=== PATIENT | male | born 1945 | race Hispanic/Latino ===

== ENCOUNTER 2019-12-10 09:03 | Outpatient (CLI) | payer MEDICARE, MEDICAID, SELFPAY ==
--- NOTE | ~2019-12-10 | US_ITS ---
EXAMINATION: US right upper quadrant DATE: 12/10/2019 09:41 INDICATION: Abnormal liver function tests. TECHNIQUE: Multiple grayscale and Doppler ultrasound images of the abdomen were obtained. COMPARISON: CT abdomen and pelvis 05/14/2019, 04/01/2016 FINDINGS: The pancreas is obscured by bowel gas. There is a 4.6 cm mass of ill-defined mild hyperecho genicity in right hepatic lobe, likely focal steatosis. There is normal flow in main portal vein. The gallbladder is normal in size. No gallstones or gallbladder wall thickening. There was no sonographi c Quinn sign. The common duct is normal and measures 4 mm. IMPRESSION: 1. Ill-defined liver mass, new from 05/14/2019, most likely focal steatosis. Consider abdomen MRI wit hout and with contrast. Reviewed, dictated and finalized at location A. IMPRESSION: 1. Ill-defined liver mass, new from 05/14/2019, most likely focal steatosis. Co nsider abdomen MRI without and with contrast.
== END 2019-12-10 09:04 | disposition home or self-care (01) ==
PROVIDERS: PCP Family Medicine; Visit Provider Family Medicine
DX: R94.5 Abnormal results of liver function studies (principal)
CPT/HCPCS: 76705

== ENCOUNTER 2019-12-20 10:48 | Outpatient (CLI) | payer MEDICARE, MEDICAID, SELFPAY ==
--- NOTE | ~2019-12-20 | MR_ITS ---
EXAMINATION: MR abdomen wo/w con DATE: 12/20/2019 12:14 INDICATION: Liver mass. TECHNIQUE: Magnetic resonance imaging (MRI) of the abdomen was performed without and with 15 mL Multi Randy intravenous contrast. Sequences included coronal T2-weighted FS FSE, coronal and axial FS FIEST A, axial T2-weighted FSE, coronal LAVA-flex, axial STIR FSE, axial DWI, axial dual-echo T1-weighted F SPGR, and axial LAVA. Postcontrast sequences included coronal LAVA-flex and a time course of axial LA VA. COMPARISON: Abdomen ultrasound 12/10/2019, CT abdomen and pelvis 05/14/2019 FINDINGS: There are cysts in the liver measuring up to 14 mm. The gallbladder, spleen, pancreas, and adrenal gl ands are normal. There are cysts in the kidneys measuring up to 2.0 cm on the right. There are no dil ated loops of bowel. There are no pathologically enlarged lymph nodes. There is no free intraperitone al fluid. IMPRESSION: 1. Benign cysts in the liver. Reviewed, dictated and finalized at location A.
[2019-12-20 11:36] LABS: Estimated Glomerular Filt Rate > 60
== END 2019-12-20 10:49 | disposition home or self-care (01) ==
PROVIDERS: PCP Family Medicine; Visit Provider Family Medicine
DX: R16.0 Hepatomegaly, not elsewhere classified (principal); K76.89 Other specified diseases of liver
CPT/HCPCS: 36415; 74183; A9577

== ENCOUNTER 2023-03-28 02:03 | Day surgery (SDC) | payer OTHER, SELFPAY ==
[2023-03-26 09:10] VITALS: BP 133/82; PULSE 68; RESP 16; TEMP 36.9; O2SAT 96
[2023-03-26 09:12] VITALS: BMI 28.5
--- NOTE | 2023-03-26 09:12 | PC.NURSE ---
Report to the Outpatient Waiting Room, entrance under the green pavilion located off [facility], at time _0600_ on date _[id number]_. Planned Procedure Time: _0730_. Time changes happen often and if your time is changed the preop area will call you the afternoon before. - You and your visitor will be asked to self-screen and do not enter if you have any COVID symptoms. - A mask is optional within the hospital at this time. Patients may have clear liquids (water, carbonated beverages, clear teas, apple juice) until 3 hours prior to surgery with a maximum of 20 ounces. - No food from midnight until time of surgery Take the following medications with a SIP of water the morning of surgery: ____None DO NOT STOP ANY OF YOUR OTHER PRESCRIPTION MEDICATIONS PRIOR TO SURGERY ?EXCEPT THE FOLLOWING Medications to discontinue per physician None Date to take last dose Please no make-up, nail mexican, hairspray, perfume, deodorant, or body powder the day of surgery. No jewelry (including any body piercings) or valuables the day of surgery, leave them at home. Please take a shower or bath the night before, or the morning of, surgery with an antibacterial soap. Wear comfortable, loose fitting clothing. - Jewelry must be removed prior to entering the operating room. Rings and piercings that are not removed may be cut off. - The hospital will not accept responsibility for valuables. - Please leave all valuables, including medications, at home the day of surgery. If you are going home after surgery, a licensed commercial trailer truck driver must drive you home. - NO public transportation without another adult if you receive anesthesia. - We recommend that an adult stay with you for 24 hours following discharge. - We also recommend that you do not drive, make important decision, drink alcoholic beverages, or take any drugs that were not prescribed by your health care provider for at least 24 hours after your discharge time. Follow any additional instructions given to you from your surgeon. If you or anyone in your household have experienced Covid symptoms in the past week, please notify your surgeon or the nurse liaison at the phone number below for possible testing. Telephone instructions given to _Linnette and Gary__and asked if any additional questions and then verbalized understanding. Patient advised to call surgeon office or pre surgery nurse liaison [phone] if any additional questions.
--- NOTE | 2023-03-26 15:25 | PM.IMHP ---
H&P: HPI History of Present Illness Date/Time: 03/26/23 15:25 Chief Complaint: Patient presents a chief complaint of stiffness right knee status post knee replacement surgery. His motion is from about 3 to 95? or so. He had the knee done 6 weeks ago by me and initially had done well those these becoming a little bit stiffer with time. He has pain when he walks on it. Review of Systems Review of Systems: All systems reviewed & are unremarkable except as noted in HPI and below Musculoskeletal: Musculoskeletal: Reports arthralgias and Reports joint swelling FOR[facility]LY [facility] Surgical History Surgical History (Updated 03/24/23 @ 11:04 by Bryan Castelan MD) History of right knee joint replacement 02/05/23- Dr Castelan Social History Social History (Updated 03/24/23 @ 10:37 by Yudi Walker [facility]) Years smoked: 50 Smoking status: Former smoker Smoking end date: 01/24/23 Alcohol intake: never Substance use type: does not use Lack of Transportation: No Lack of Food: Never True Current Housing: I Have Housing Concerned About Future Housing: No Difficulty Paying Gas/Electric Bills: No Difficulty Paying for Meds: No Currently Unemployed: No Education: Grade School Difficulty w/ Childcare or Family Care: No Living arrangements: with family Occupation/Education: retired Spiritual care concerns: No Meds Home Medications and Allergies Home Medications Medication Instructions Recorded Confirmed Type No Home Medications 03/24/23 03/26/23 History Allergies Allergy/AdvReac Type Severity Reaction Status Date / Time No Known Allergies Allergy Unknown Verified 03/26/23 09:04 Vital Signs Vital Signs - 24 hr 03/26/23 09:10 Temperature 98.4 F Pulse Rate 68 Respiratory Rate 16 Blood Pressure 133/82 Pulse Oximetry 96 Oxygen Delivery Room Air Exam Narrative: Examination of his knee demonstrates motion from about 3 to 95? he has a painful beyond that the knee is stiff. Neurologically appears to be intact incision is clean he has mild swelling about the knee. The knee is stable to stress and side to side as well as front to back. Const: General: uncomfortable HENMT: Ears: TM's normal bilaterally Eyes: General: appearance normal, both eyes and all related structures Neck: Neck: supple Resp: Effort & Inspection: normal respiratory effort Cardio: Rate: regular rate GI: GI Palp: Yes Soft to palpation Skin: Wounds: wounds noted ( Surgical wound is healing well.) Neuro: Motor exam (neuro): 5/5 motor strength present throughout and Normal motor muscle tone present throughout Assessment and Plan Assessment and plan (1) History of right knee joint replacement: Code(s): Z96.651 - Presence of right artificial knee joint Status: Acute Assessment and Plan: Patient is status post total knee arthroplasty right. He has some postoperative stiffness and he is not progressing. I think it best to try and see if we can get him a little more motion. His motion at this time is about 3 to 95?. The knee is stable in fact a bit too stable his incision is clean he does have mild pain and swelling. I have discussed treatment options with him risks benefits limitations and alternatives in detail. Will proceed with manipulation right knee. I did discuss the possibility of fracture although I think it terribly unlikely. (2) Postoperative stiffness of total knee replacement: Code(s): T84.89XA - Other specified complication of internal orthopedic prosthetic devices, implants and grafts, initial encounter; M25.669 - Stiffness of unspecified knee, not elsewhere classified; Z96.659 - Presence of unspecified artificial knee joint Status: Acute
--- NOTE | 2023-03-27 15:26 | WPDANESEPPF ---
Anes - Initial Pre Proc Eval Procedure: Operation Date: 03/28/23 07:30 Proposed Procedures p Manipulation Right Knee - Bryan Castelan MD Date/Time: 03/27/23 15:26 Surgeon: Bryan Castelan MD Pre Op Diagnosis: Right Knee Pain Patient Data Age: 78 Gender: M Height: 1.7 m Weight: 82.6 kg Last Vital Signs Temp 36.9 C 03/26/23 09:10 Pulse 68 03/26/23 09:10 Resp 16 03/26/23 09:10 BP 133/82 03/26/23 09:10 Pulse Ox 96 03/26/23 09:10 O2 Del Method Room Air 03/26/23 09:10 Allergies Allergy/AdvReac Type Severity Reaction Status Date / Time No Known Allergies Allergy Unknown Verified 03/28/23 06:22 Home Medications Medication Instructions Recorded Confirmed Type hydrocodone 7.5 mg-acetaminophen 1 tablet PO Q4H PRN pain #40 tabs 03/28/23 Rx 325 mg tablet Patient hx anesthesia problems: none Family hx anesthesia problems: none Results Review: All pre-operative results and documents have been reviewed as part of the pre-operative evaluation. [facility]LY [facility] Surgical History Surgical History (Updated 03/24/23 @ 11:04 by Bryan Castelan MD) History of right knee joint replacement 02/05/23- Dr Castelan Social History Social History (Updated 03/24/23 @ 10:37 by Yudi Walker [facility]) Years smoked: 50 Smoking status: Former smoker Smoking end date: 01/24/23 Alcohol intake: never Substance use type: does not use Lack of Transportation: No Lack of Food: Never True Current Housing: I Have Housing Concerned About Future Housing: No Difficulty Paying Gas/Electric Bills: No Difficulty Paying for Meds: No Currently Unemployed: No Education: Grade School Difficulty w/ Childcare or Family Care: No Living arrangements: with family Occupation/Education: retired Spiritual care concerns: No Anes - Eval Final PreProcedure Day of Procedure 03/27/23 15:26 Patient weight: overweight Heart: regular rate and rhythm Lungs: clear to auscultation Airway: Mallampati scale class II Neurological: alert and oriented Last oral intake: >/= 8 hours ASA classification: II Emergent: no Anesthetic plan: proceed Anesthesia type and monitoring: general GIVS and standard monitoring Results Review: All pre-operative results and documents have been reviewed as part of the pre-operative evaluation. Informed Consent: The patient's anesthetic plan and its attendant risks and benefits were discussed with the patient/family/POA. Questions were solicited and answers provided to the satisfaction of the patient/family/POA.
--- NOTE | 2023-03-28 06:39 | WPDHPUPDATE1 ---
History and Physical Update Update Date/Time: 03/28/23 06:39 History and Physical has been reviewed, including an updated exam of the patient. There are NO changes in the patient's condition. Risks, benefits, and alternatives have been discussed and questions answered. Patient agrees to proceed with procedure.
[2023-03-28] MEDS: ACETAMINOPHEN 500 MG TABLET 1000 MG PO (06:52)
[2023-03-28] MEDS: LACTATED RINGERS 1,000 ML 30 ML IV CONT (06:57)
[2023-03-28] MEDS: KETOROLAC 15 MG/ML VIAL (*BKC) IV PUSH (06:58)
[2023-03-28 07:01] VITALS: BP 124/69; PULSE 66; RESP 16; TEMP 36.8; O2SAT 96
--- NOTE | 2023-03-28 07:38 | W.PM.PROC2 ---
Procedure Note - Detailed Date of Procedure 03/28/23 Pre-op Diagnosis Right Knee Pain and Stiffness Post-op Diagnosis Same Procedure Performed Manipulation Surgeon Bryan Castelan MD Anesthesia General Indications Adhesions Description of Procedure Patient brought to operating room 5. A general anesthetic was administered. The knee was then gently manipulated into full extension and flexion beyond 120?. The bands were felt tear. I did not appreciate a fracture at that time. The patient left the operating room in satisfactory condition. Estimated Blood Loss 0 Disposition PACU
--- NOTE | 2023-03-28 07:43 | SUR.OPER ---
NO POST OP XRAY VERIFIED POST MANIPULATION WITH SURGEON.
[2023-03-28 07:46] VITALS: BP 114/66; PULSE 61; RESP 14; O2SAT 99
[2023-03-28 08:15] VITALS: BP 121/73; PULSE 65; O2SAT 95
--- NOTE | 2023-03-28 08:18 | WPDANESPNB ---
Anes - Peripheral Nerve Block Date/Time: 03/28/23 08:18 I have discussed with the patient/family/POA the placement of a peripheral nerve block for post-operative pain management, including associated risks, benefits, complications, and side effects. Alternative methods of post-operative analgesia were detailed. Questions were solicited and answers provided to the satisfaction of the patient/family/POA. Time-Out: A pre-procedural Time-Out was completed immediately before starting the procedure and confirmed: Patient Identification, Site, Procedure, Patient Position and the Availability of Requisite Equipment. Clinical Indications: Acute post-operative pain management requested by the operative surgeon. Nerve Block Insertion Note Anes-nerve block: adductor canal right Patient position: supine Skin prep: chlorhexidine Needle: 22 gauge, stimulating, insulated echogenic needle. Needle length: 80 mm Technique: ultrasound Injectate: bupivacaine 0.5% with epi 5 mcg/ml (30cc - no epi) Observations: tolerated well Complications: none Procedure start time:: 720 Procedure end time:: 724
== END 2023-03-28 08:33 | disposition home or self-care (01) ==
PROVIDERS: PCP Family Medicine; Visit Provider Orthopaedic Surgery
PROC: (CPT 27570; principal; 2023-03-28 07:30)
DX: M25.661 Stiffness of right knee, not elsewhere classified (principal); T84.89XA Other specified complication of internal orthopedic prosthetic devices, implants and grafts, initial encounter; Z96.651 Presence of right artificial knee joint; Z87.891 Personal history of nicotine dependence
CPT/HCPCS: 27570; A9270; J1885; J2704; J3010; J7120

== ENCOUNTER 2023-04-28 12:30 | Outpatient (RCR) | payer OTHER, SELFPAY ==
--- NOTE | 2023-03-31 10:44 | PTOPEVAL1 ---
Assessment and note entered by Jesi Padilla DPT Evaluation Information Assessment Status Evaluation Subjective Information Pt is s/p right knee manipulation on 03/28/23. Highest pain recently 8-9/10 and lowest 4/10. Originally had surgery on February 05 and his knee was not bending well. Pt is using a straight cane some of the time. No cane use before the first surgery. Pt is able to cook, clean and dress independently with some pain. Pt has not driven since the manipulation but did some of the time prior to surgery. Returns to MD but unsure date. Per family member, no stairs at home to navigate. Patient goal: decrease pain, get the knee to bend better. Reported Pain Level Pain Score 5: Self Report Assessment PT Clinical Summary The patient is presenting to skilled therapy s/p R knee manipulation on 03/28/23. He presents with decreased knee extension to +5 and knee flexion to 89 (100 at end of visit). His lack of motion is contributing to his pain and difficulty with activities such as dressing and cleaning. He currently uses a cane at times but prior to surgery he did not use a device. He will benefit from therapy to address his impairments in order to reduce pain and improve function. Plan of Care Interventions Electrical Stimulation,Gait Training,Hot Pack/Cold Pack,Manual Therapy,Neuro Re-education,Patient/ Caregiver Education,Therapeutic Activities, Therapeutic Exercise PT Services Indicated Yes Treatment Frequency and 2 times a week for 8 visits Duration These treatments will address the objective and functional deficits as defined above. The patient will be advanced safely and appropriately in order for the patient to progress towards his/her prior level of function. Additional exercises will be introduced and as well as a comprehensive home exercise program upon discharge, if needed, ?to ensure carryover of functional gains achieved in the clinic. This treatment plan has been reviewed and agreement upon by the patient.
--- NOTE | 2023-03-31 10:58 | OPREHPOC ---
Outpatient Therapy Plan of Care This is a Multidisciplinary Plan of Care that may contain components documented by all disciplines (PT, OT, and ST.) PT Problem 1 PT Problem #1 Knowledge Deficit PT Goal 1 Goal 1. Patient will perform independent HEP Target Visit 9 PT Problem 2 PT Problem #2 Impaired Range of Motion PT Goal 1 Goal 1. Improve extension to 0 to normalize gait pattern 2. Improve flexion to 125 for full participation in ADL's Target Visit 9 PT Problem 3 PT Problem #3 Pain PT Goal 1 Goal 1. Pain no higher than 2/10 with ADL's Target Visit 9
--- NOTE | 2023-04-28 13:01 | OPREHPOC ---
Outpatient Therapy Plan of Care This is a Multidisciplinary Plan of Care that may contain components documented by all disciplines (PT, OT, and ST.) PT Problem 1 PT Problem #1 Knowledge Deficit PT Goal 1 Goal 1. Patient will perform independent HEP Target Visit 9 Progress Met PT Problem 2 PT Problem #2 Impaired Range of Motion PT Goal 1 Goal 1. Improve extension to 0 to normalize gait pattern 2. Improve flexion to 125 for full participation in ADL's Target Visit 9 Progress Partially Met PT Problem 3 PT Problem #3 Pain PT Goal 1 Goal 1. Pain no higher than 2/10 with ADL's Target Visit 9 Progress Partially Met
--- NOTE | 2023-04-28 13:02 | PTOPDC ---
Assessment and note entered by Jesi Padilla DPT Evaluation Information Assessment Status Discharge Subjective Information Highest pain 5/10 and lowest 0/10. With help from family member pt reports he is feeling better with therapy, less difficulty walking and with stairs. Some pain with car transfers but is able to do them. Ready to be done with therapy. Reported Pain Level Pain Score 0: Self Report Assessment PT Clinical Summary The patient has made some progress in therapy and reports decreased pain and improvements with walking and stairs. He demonstrates some range of motion improvements (+3 extension, 105 flexion actively). He reports he would like to be done with therapy today and has been educated in an HEP to continue addressing range of motion independently. Plan of Care PT Services Indicated No
== END 2023-04-28 14:50 | disposition home or self-care (01) ==
LOC: ANHGOSHPT 12:30
PROVIDERS: PCP Family Medicine; Visit Provider Orthopaedic Surgery
DX: M25.669 Stiffness of unspecified knee, not elsewhere classified (principal); T84.89XA Other specified complication of internal orthopedic prosthetic devices, implants and grafts, initial encounter; Z96.659 Presence of unspecified artificial knee joint; Z96.651 Presence of right artificial knee joint
CPT/HCPCS: 97014; 97110; 97112; 97161; 97530; G0283

== ENCOUNTER 2023-08-02 13:54 | Emergency (ER) | payer OTHER, SELFPAY ==
--- NOTE | ~2023-08-02 | XR_ITS ---
EXAM: XR forearm RT 2V DATE: 08/02/2023 14:21 HISTORY: foreign body from tree branch . COMPARISON: None available. FINDINGS: No radiopaque foreign body. Decreased mineralization. No fracture or dislocation. No lytic or blastic lesion. Mild scattered degenerative changes in the wrist and elbow. No erosion or periost eal change. Soft tissues within normal limits. IMPRESSION: No acute osseous finding or radiopaque foreign body. Reviewed, dictated and finalized at location K. FIC SIGNAL TECHNICIAN
[2023-08-02 14:08] VITALS: BP 138/70; PULSE 76; RESP 20; TEMP 36.7; O2SAT 96
--- NOTE | 2023-08-02 14:22 | ED.GENADULT ---
HPI - General Adult General Chief complaint: Extremity Injury, Upper Stated complaint: right forearm injury Source: patient, RN notes reviewed and old records reviewed Mode of arrival: ambulatory Limitations: no limitations History of Present Illness HPI narrative: Gala male patient presents to [facility] with complaints of possible foreign body in the right arm. 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 Bleeding controlled upon arrival to urgent care. Patient states tetanus is up-to-date. Related Data Home Medications Medication Instructions Recorded Confirmed clobetasol 0.05 % scalp solution topical 08/02/23 omeprazole 20 mg capsule,delayed mg 08/02/23 release sodium chloride 0.65 % nasal spray spray intranasal 08/02/23 aerosol (Deep Sea Nasal) Allergies Allergy/AdvReac Type Severity Reaction Status Date / Time No Known Allergies Allergy Verified 08/02/23 14:13 Review of Systems Constitutional: Constitutional: Reports no additional constitutional complaints, Denies body ache(s), Denies chills, Denies fatigue, Denies fever(s) and Denies headache(s) Eyes: Eyes: Reports no additional eye complaints and Denies blurry vision ENT: Reports system reviewed and no additional complaints, except as documented, Denies vertigo, Denies dizziness, Denies ear discharge, Denies otalgia, Denies facial pain, Denies headache(s), Denies nasal congestion, Denies nasal discharge, Denies sinus pain, Denies sinus pressure and Denies sore throat Cardiovascular: Cardiovascular: Reports no additional cardiovascular complaints, Denies chest pain, Denies chest pain at rest, Denies rapid heart rate and Denies dyspnea Respiratory: Respiratory: Reports no additional respiratory complaints, Denies chest congestion, Denies cough, Denies pain on inspiration, Denies pain with cough and Denies dyspnea Gastrointestinal: Gastrointestinal: Denies abdominal pain, Denies diarrhea, Denies nausea and Denies vomiting Musculoskeletal: Musculoskeletal: Reports no additional musculoskeletal complaints Integumentary/Breasts: Skin/Breast: Denies rash and Reports wounds ( Puncture in to right forearm) Neurologic: Reports system reviewed and no additional complaints, except as documented, Denies vertigo, Denies dizziness and Denies headache(s) Endocrine: Endocrine: Denies fatigue PMFSH Comments At the time of my signature, I reviewed and agree with the nursing past medical, surgical, social, and family history. There is no relevant family history pertinent to the patient complaint. Exam Const: General: cooperative, healthy appearing, no acute distress and well nourished Nutritional Appearance: well nourished Orientation/consciousness: patient oriented x3 Limitations: no limitations HENMT: Head: normal to inspection and normocephalic Ears: external ears normal, TM's normal bilaterally, mastoids normal and Abnormal EAC present Face/Nose/Sinus: normal facial exam Face and sinus: normal facial exam Mouth: Yes Normal oral and palatal mucosa present, Yes oropharynx normal and Yes moist mucous membranes Throat: tonsils normal, uvula midline and no uvular edema Eyes: General: appearance normal, both eyes and all related structures Sclera: sclerae normal Pupils: Equal, round and reactive pupils present Resp: Effort & Inspection: normal respiratory effort, able to speak in complete sentences, no audible wheezes, no cough, no respiratory distress and no retractions Auscultation: clear to auscultation bilaterally, no crackles, no rales, no rhonchi and no wheezes Cardio: Rate: regular rate Rhythm: regular rhythm Skin: General skin exam: normal color and no rashes or lesions noted Neuro: General: patient oriented x3 Cranial nerves: Yes Equal, round and reactive pupils present Psych: Appearance: grossly normal Mental Status: mental status grossly normal Speech and movement: Normal
[2023-08-02] MEDS: TETANUS,DIPHTHERIA,AC PERTUSSIS ADULT (0.5 ML) BOOSTRIX IM (15:03)
== END 2023-08-02 14:55 | disposition home or self-care (01) ==
PROVIDERS: Emergency Provider Registered Nurse
DX: S50.851A Superficial foreign body of right forearm, initial encounter (principal); W22.8XXA Striking against or struck by other objects, initial encounter; Z23 Encounter for immunization; K21.9 Gastro-esophageal reflux disease without esophagitis
CPT/HCPCS: 10120; 73090; 90471; 90715; 99213; G0463

== ENCOUNTER 2024-08-30 08:30 | Outpatient (CLI) | payer OTHER, SELFPAY ==
--- OUTSIDE RECORDS SUMMARY | 2024-08-30 08:58 | XMS_ITS | Clinical Summary ---
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 Immunizations Immunization Administration Dates Next Due Influenza, Trivalent, High D ose, Split, Preservative Free, Intramuscular 05/10/2019,02/17/2018,07/16/2017,08/07 Pneumococcal Conjugate PCV 13 07/16/2017 Surgical History Surgery Date Site/Laterality Comments HERNIA REPAIR Family History Medical History Relation Name Comments No Known Problems Father Colon cancer Mother Relation Name Status Comments Father Mother Social History Tobacco Use Types Packs/Day Years Used Date Smoking Tobacco: Light Smoker Cigarettes Cigars Smokeless Tobacco: Never Tobacco Cessation:Ready to Q uit: No; Counseling Given: Yes Alcohol Use Standard Drinks/Week Comments Yes 2 (1 standard drink = 0.6 oz pur e alcohol) Personal Safety Answer Date Recorded Getting School Help Needed Not on file 08/16 Sex and Gender Information Value Date Recorded Sex Assigned at Not on file 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 Gender Identity Not on file Sexual Orientation Not on file 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 Not on file Not on file Not on file Obstetrics History Last Filed Vital Signs Vital Sign Reading Time Taken Comments Blood Pressure 116/71 12/28/2019 3:06 PM CDT Pulse 64 12/28/2019 3:06 PM CDT Temperature 36.7 C (98 F) 12/28/2019 3:06 PM CDT Respiratory Rate 16 12/28/2019 3:06 PM CDT Oxygen Saturation 94% 12/28/2019 3:06 PM CDT Inhaled Oxygen Concentration - - Weight 84.4 kg (186 lb) 12/28/2019 3:06 PM CDT Height 163.8 cm (5' 4.5 ) 12/28/2019 3:06 PM CDT Body Mass Index 31.43 12/28/2019 3:06 PM CDT Plan of Treatment Health Maintenance Due Date Last Done Comments Depression Screening 1945 Fall Risk Assessment 1945 DTaP/Tdap/Td Vaccine (1 - Tdap) 02/07/1955 Hepatitis B Screening 02/07/1962 Zoster Vaccine (1 of 2) 02/07/1994 Abdominal Aortic Aneurysm (A AA) Screen 02/07/2009 Well Visit 65+ 02/07/2009 Pneumococcal vaccine 65+ (2 of 2 - PPSV23) 09/10/2017 07/16/2017 Influenza Vaccine (#1) 2024 9, 02/17/2018, 07/16/2017, Additional history exists Insurance [facility] Care Teams Product Test Specialist Relationship Specialty Start Date End Date Coby Del Toro MD [address] [place] [address] [place] [id number] PCP - General Family Medicine 12/14/19
--- OUTSIDE RECORDS SUMMARY | 2024-08-30 08:58 | XMS_ITS | Data Portability ---
Author Organization [place] [email or web address], Main Office Address [address] [place] [address] Care Team Providers Care Manager Hiv Name Role Phone ROSE DEL TORO Primary Care Provider ROSE DEL TORO Referring Provider [phone] Assessment No assessment recorded. Plan of Treatment Reminders Order Date Submit Date Provider Last Modified By Organization Details Last Modified Time Details Appointments Follow Up 30 2024 08:00A Regla Brown NP Not available Not available Not available Lab PSA, total, serum or plasma [address] (Lab), [address] [place] [address], [id number], 08/16/2024 09:54:04 vitamin D, 25-hydrox y, total, serum [address] (Lab), [address] [place] [address], [phone], 08/16/2024 09:54:03 lipid panel, serum [address] (Lab), [address] [place] [address], [phone], 08/16/2024 09:54:03 CMP, serum or plasma [address] (Lab), [address] [place] [address], [phone], 08/16/2024 09:54:04 CBC w/ auto diff 2024 025 [facility] (Lab), [address], [place], [address], 08/16/2024 09:54:03 HbA1c (hemoglob in A1c), blood 2024 025 [email or web address] [facility] (Lab), [address], [place], [address], 08/16/2024 09:54:04 PSA, total, serum or plasma 2023 024 MAHNAZ Not available 10/22/2023 21:29:05 vitamin D, 25-hydrox y, total, serum 2023 024 MAHNAZ Not available 10/27/2023 11:05:54 lipid panel, serum 2023 024 MAHNAZ Not available 10/22/2023 21:25:11 hepatic function panel, serum 2023 024 MAHNAZ Not available 10/22/2023 21:25:17 CBC w/ auto diff 2023 024 MAHNAZ Not available 10/22/2023 20:17:03 PSA, serum or plasma [email or web address] [place] [address] (Lab), [address] [place], [address], 08/15/2023 08:10:56 Referral dermatolo gist referral - ?melanoma . Call [phone] Nathan Vivas to make appt. Please call patient to schedule an appointme nt. Thank you. [address] [facility], [address], [address], 03/25/2024 10:28:01 dermatolo gist referral - ?melanoma . Call [phone] Nathan Vivas to make appt. Thank you. 2023 024 [email or web address] [facility], [address], [place], [address], 11/21/2023 08:58:36 Procedures None recorded. Surgeries None recorded. Imaging None recorded. Medication Orders clobetaso l 0.05 % scalp solution 2023 [place] [id number], [address] [place], [place], [id number], 07/25/2023 14:16:41 ketoconaz ole 2 % shampoo 2023 [facility] #76746, [address] [place], [place], [phone], 07/25/2023 14:16:40 [place] [facility], [address] [place], [place], [phone], 07/25/2023 14:16:37 omeprazol e 20 mg capsule,d elayed release 2023 024 [email or web address] [email or web address] #91535, [address] [place], [place], [phone], 08/16/2024 09:18:27 Patient TargetsNo targets recorded. Patient Instructions Encounter Date Encounter Id Patient Instructions Last Modified By Organization Details Last Modified Time 08/16/2024 [id number] dementia rating scale-2* [email or web address] Not available 08/16/2024 09:54:04 multi-dimensiona l health assessment questionnaire* [email or web address] Not available 08/16/2024 09:54:04 care plan* MAHNAZ Not available 08/16 10:43:30 advance care planning: care instructions [email or web address] Not available 08/16/2024 09:54:04 advance directives: care instructions [email or web address] Not available 08/16/2024 09:54:03 [place] Advance Directives Not available 08/16/2024 09:54:03 Reason for Referral Bow Repairer Custom Referral for P igmented skin lesion ?melanoma. Call [phone] Sangeetha to make appt. Thank you. Referring Physician: Rose Del Toro, [facility], Encounter Date: 10/15/2023 Bow Repairer Custom Referral for P igmented skin lesion rule out melanoma to right lower abdomen ?melanoma. Call [phone] Sangeetha to make appt. Please call patient to schedule an appointment. Thank you. Referring Physician: Carlos Enrique Hanna [facility], Encounter Date: 02/26/2024 Results Created Date Observation Date Name Description Value Unit Range Abnormal Flag Note LastModifiedBy Organization Detail LastModifiedTime 10/22/19 24 10/22/2023 CBC/C OMPLE TE BLD COUNT W/DIF F white blood cells 5.3 x10'3 /uL 4.2-10 .8 Not Available [facility] (Lab) [address] [place], [address], 10/22/2023 20:17:02 10/22/19 24 10/22/2023 CBC/C OMPLE TE BLD COUNT W/DIF F red blood cells 4.86 x10'6 /uL 4.10-5 .80 Not Available [facility] (Lab) [address] [place], [address], 10/22/2023 20:17:02 10/22/19 24 10/22/2023 CBC/C OMPLE TE BLD COUNT W/DIF F hemoglobin 15.4 g/dL 13.2-1 7.0 Not Available [facility] (Lab) [address] [place], [address], 10/22/2023 20:17:02 10/22/19 24 10/22/2023 CBC/C OMPLE TE BLD COUNT W/DIF F hematocrit 43.8 % 39.3-5 0.0 Not Available [facility] (Lab) [address] [place], [address], 10/22/2023 20:17:02 10/22/19 24 10/22/2023 CBC/C OMPLE TE BLD COUNT W/DIF F mean red cell volume 90.1 fL 80.0-9 7.0 Not Available [facility] (Lab) [address] [place], [address], 10/22/2023 20:17:02 10/22/19 24 10/22/2023 CBC/C OMPLE TE BLD COUNT W/DIF F mean red cell hemoglobin 31.7 pg 27.0-3 3.0 Not Available [facility] (Lab) [address] [place], [address], 10/22/2023 20:17:02 10/22/19 24 10/22/2023 CBC/C OMPLE TE BLD COUNT W/DIF F mean RBC HGB concentratio n 35.2 g/dL 31.0-3 6.0 Not Available [facility] (Lab) [address] [place], [address], 10/22/2023 20:17:02 10/22/19 24 10/22/2023 CBC/C OMPLE TE BLD COUNT W/DIF F red cell distribution width 13.7 % 11.8-1 5.5 Not Available [facility] (Lab) [address] [place], [address], 10/22/2023 20:17:02 10/22/19 24 10/22/2023 CBC/C OMPLE TE BLD COUNT W/DIF F platelets 191 x10'3 /uL 150-40 0 Not Available [facility] (Lab) [address] [place], [address], 10/22/2023 20:17:02 10/22/19 24 10/22/2023 CBC/C OMPLE TE BLD COUNT W/DIF F mean platelet volume 11.5 fL 9.0-12 .4 Not Available [facility] (Lab) [address] [place], [address], 10/22/2023 20:17:02 10/22/19 24 10/22/2023 CBC/C OMPLE TE BLD COUNT W/DIF F neutrophils 58.9 % 39.0-7 2.0 Not Available [facility] (Lab) [address] [place], [address], 10/22/2023 20:17:02 10/22/19 24 10/22/2023 CBC/C OMPLE TE BLD COUNT W/DIF F lymphocytes 31.4 % 16.0-4 7.0 Not Available [facility] (Lab) [address] [place], [address], 10/22/2023 20:17:02 10/22/19 24 10/22/2023 CBC/C OMPLE TE BLD COUNT W/DIF F monocytes 7.0 % 5.0-12 .0 Not Available [facility] (Lab) [address] [place], [address], 10/22/2023 20:17:02 10/22/19 24 10/22/2023 CBC/C OMPLE TE BLD COUNT W/DIF F eosinophils 1.5 % 1.0-7. 0 Not Available [facility] (Lab) [address] [place], [address], 10/22/2023 20:17:02 10/22/19 24 10/22/2023 CBC/C OMPLE TE BLD COUNT W/DIF F basophils 1.0 % 0.0-2. 0 Not Available [facility] (Lab) [address] [place], [address], 10/22/2023 20:17:02 10/22/19 24 10/22/2023 CBC/C OMPLE TE BLD COUNT W/DIF F immature granulocytes 0.2 % 0.00-0 .50 Not Available [facility] (Lab) [address] [place], [address], 10/22/2023 20:17:02 10/22/19 24 10/22/2023 CBC/C OMPLE TE BLD COUNT W/DIF F neutrophils, absolute count 3.10 x10'3 /uL 1.5-8. 0 Not Available [facility] (Lab) [address] [place], [address], 10/22/2023 20:17:02 10/22/19 24 10/22/2023 CBC/C OMPLE TE BLD COUNT W/DIF F lymphocytes, absolute count 1.65 x10'3 /uL 1.07-3 .43 Not Available [facility] (Lab) [address] [place], [address], 10/22/2023 20:17:02 10/22/19 24 10/22/2023 CBC/C OMPLE TE BLD COUNT W/DIF F monocytes, absolute count 0.37 x10'3 /uL 0.29-0 .99 Not Available [facility] (Lab) [address] [place], [address], 10/22/2023 20:17:02 10/22/19 24 10/22/2023 CBC/C OMPLE TE BLD COUNT W/DIF F eosinophils, absolute count 0.08 x10'3 /uL 0.02-0 .53 Not Available [facility] (Lab) [address] [place], [address], 10/22/2023 20:17:02 10/22/19 24 10/22/2023 CBC/C OMPLE TE BLD COUNT W/DIF F basophils, absolute count 0.05 x10'3 /uL 0.01-0 .08 Not Available [facility] (Lab) [address] [place], [address], 10/22/2023 20:17:02 10/22/19 24 10/22/2023 CBC/C OMPLE TE BLD COUNT W/DIF F immature granulocytes ,absolute 0.01 x10'3 /uL 0.00-0 .05 Not Available [facility] (Lab) [address] [place], [address], 10/22/2023 20:17:02 10/22/19 24 10/22/2023 CBC/C OMPLE TE BLD COUNT W/DIF F nucleated red blood cells 0.0 % -0 Not Available [facility] (Lab) [address] [place], [address], 10/22/2023 20:17:02 10/22/19 24 10/22/2023 CBC/C OMPLE TE BLD COUNT W/DIF F NRBC# 0.00 x10'3 /uL Not Available [facility] (Lab) [address] [place], [address], 10/22/2023 20:17:02 10/22/19 24 10/22/2023 LIPID PANEL cholesterol 212 mg/dL 140-19 9 high NIH DINA NSUS RECOM MENDA TION FOR COLTON STERO L: ADULT CHILD LOW RISK: <200 <170 BORDE RLINE : <200- 239 ----- HIGH RISK: >240 >200 Not Available [facility] (Lab) [address] [place], [address], 10/22/2023 21:25:11 10/22/19 24 10/22/2023 LIPID PANEL triglyceride s 133 mg/dL 0-150 NIH DINA NSUS REPOR T RECOM MENDA TION FOR TRIGL YCERI BRADLEY: ADULT CHILD LOW RISK: <150 ----- BODER LINE: 150-1 99 ----- HIGH RISK: >200 ----- Not Available [facility] (Lab) [address] [place], [address], 10/22/2023 21:25:11 10/22/19 24 10/22/2023 LIPID PANEL HDL cholesterol 55 mg/dL 40- Not Available [facility] (Lab) [address] [place], [address], 10/22/2023 21:25:11 10/22/19 24 10/22/2023 LIPID PANEL LDL cholesterol, calculated 130 mg/dL 0-130 NIH DINA NSUS REPOR T RECOM MENDA TIONS FOR LDL: ADULT CHILD LOW RISK <130 <110 (OPTI MAL LDL) <100 ----- BORDE RLINE : 130-1 59 ----- HIGH RISK: >160 >130 A TRIGL YCERI DE RESUL T >400 INVAL IDATE S THE CALCU LATIO N FOR LDL FRACT IONAT ION - THE LDL RESUL T WILL NOT BE REPOR SEVERO. Not Available [facility] (Lab) [address] [place], [address], 10/22/2023 21:25:11 10/22/19 24 10/22/2023 HEPAT IC/LI PORTIA PANEL alkaline phosphatase 63 U/L 38-126 Not Available [facility] (Lab) [address] [place], [address], 10/22/2023 21:25:17 10/22/19 24 10/22/2023 HEPAT IC/LI PORTIA PANEL alanine aminotransfe rase 14 U/L 0-50 Not Available [facility] (Lab) [address] [place], [address], 10/22/2023 21:25:17 10/22/19 24 10/22/2023 HEPAT IC/LI PORTIA PANEL aspartate aminotransfe rase 29 U/L 15-46 Not Available [facility] (Lab) [address] [place], [address], 10/22/2023 21:25:17 10/22/19 24 10/22/2023 HEPAT IC/LI PORTIA PANEL bilirubin, total 1.60 mg/dL 0.20-1 .30 high Not Available [facility] (Lab) [address] [place], [address], 10/22/2023 21:25:17 10/22/19 24 10/22/2023 HEPAT IC/LI PORTIA PANEL bilirubin, conjugated (direct) 0.00 mg/dL 0.00-0 .30 Not Available [facility] (Lab) [address] [place], [address], 10/22/2023 21:25:17 10/22/19 24 10/22/2023 HEPAT IC/LI PORTIA PANEL biliurubin,u ncong. (indirect) 1.30 mg/dL 0.00-1 .1 high Not Available [facility] (Lab) [address] [place], [address], 10/22/2023 21:25:17 10/22/19 24 10/22/2023 HEPAT IC/LI PORTIA PANEL total protein 6.8 g/dL 6.3-8. 2 Not Available [facility] (Lab) [address] [place], [address], 10/22/2023 21:25:17 10/22/19 24 10/22/2023 HEPAT IC/LI PORTIA PANEL albumin 4.2 g/dL 3.0-4. 4 Not Available [facility] (Lab) [address] [place], [address], 10/22/2023 21:25:17 10/22/19 24 10/22/2023 HEPAT IC/LI PORTIA PANEL globulin 2.6 g/dL 2.6-4. 2 Not Available [facility] (Lab) [address] [place], [address], 10/22/2023 21:25:17 10/22/19 24 10/22/2023 HEPAT IC/LI PORTIA PANEL A/G ratio 1.6 ratio 1.0-2. 0 Not Available [facility] (Lab) [address] [place], [address], 10/22/2023 21:25:17 10/22/19 24 10/22/2023 PSA SCREE N PSA medicare screen 1.10 NG/mL 0.00-4 .00 Not Available [facility] (Lab) [address] [place], [address], 10/22/2023 21:29:04 10/22/19 24 10/22/2023 VITAM IN D 25-HY DROXY [id number] 26.0 NG/mL 30-100 low Vitam in D Statu s: Defic ient: <20 ng/mL Insuf ficie nt: 20-29 ng/mL Suffi cient : 30-10 0 ng/mL Not Available Not Available 10/22/2023 21:34:02 Result Notes None recorded. Problems Name Problem SNOMED Code Status Onset Date Resolution Date Notes Provider Name and Address Organization Details Recorded Time Osteoarth ritis of knee 978736394 Active 2021 Not Available [facility] 3 00:44:34 Osteoarth ritis of right knee joint 396099889882 100 Active 2021 Not Available [facility] 3 00:44:34 Osteoarth ritis 641791530 Active 2021 Not Available [facility] 3 00:44:34 Pain of right knee joint 074183772743 100 Active 2021 Not Available [facility] 3 00:44:34 Hernia of abdominal cavity 97261247 Active 2016 never had the surgery said old dr never gave him a surgry Not Available [facility] 3 00:44:34 Vitamin D deficienc y 45930351 Active 2022 Not Available [facility] 3 00:44:34 Hyperlipi demia 85318292 Active 2022 Not Available [facility] 3 00:44:34 Gastroeso phageal reflux disease 462645612 Active 2023 KALEE Falk [address] [facility], [place], [address] , [place] [facility] [employer] [facility] 4 14:03:47 Eczema of scalp 434170871254 00 Active 2023 JOSEFINA Falk-Jaciel [address] [facility], [address], [place], [address] , [employer] 4 14:05:54 Rhinitis 92754506 Active 2023 Carlos EnriqueJOSEFINA Fernandez-Jaciel [address] [facility], [place], [address] , [facility] 4 14:11:10 Pigmented skin lesion 986075990 Active 2023 Rose Del Toro MD [address] [facility], [place], [address] , [facility] 4 17:29:53 Gastroeso phageal reflux disease without esophagit is 134345685 Active 2023 Rose Del Toro MD [address] [facility] [employer], [place] [address], [place], [address] , [facility] 4 17:36:27 Problem Notes None recorded. Procedures Surgical History Date Name Laterality Status Provider Name and Address Organization Details Recorded Time 5 Medicare Wellness CPT Code, subsequent completed Nikkie Gardner MA [employer] 08/16/2024 08:54:27 3 Medicare Wellness CPT Code, subsequent completed Bella Brown CMA [employer] 08/07/2022 09:39:58 Hernia Surgery completed Not Available [facility] 07/31/2022 18:34:09 Imaging Results None recorded. Procedure Notes None recorded. Medical Equipment None Reported. Allergies No known drug allergies Medications Name Sig Start Date Stop Date Status Note LastModified by Organization Details LastModified Time cyclobenz aprine 10 mg tablet 08/31 completed Not Available Not Available Not Available Miralax 17 gram/dose oral powder 1 capful in 4-6 ounces of liquid po qday, may change to every other day if diarrhea 08/31 completed Not Available Not Available Not Available ketoconaz ole 2 % shampoo APPLY TO THE AFFECTED AREA(S), LATHER, LEAVE IN PLACE FOR 5 MINUTES, AND THEN RINSE OFF WITH WATER BY TOPICAL ROUTE TWO TO THREE TIMES PER WEEK FOR THE NEXT 6 WEEKS active Not Available Not Available No t Available cetirizin e 10 mg tablet Take 1 tablet every day by oral route for 90 days. active Not Available Not Available No t Available azithromy aldair 250 mg tablet TK 2 TS PO FOR 1 DAY THEN TK 1 T PO QD FOR 4 DAYS active Not Available Not Available No t Available benzonata te 200 mg capsule Take 1 capsule 3 times a day by oral route. active Not Available Not Available No t Available hydrocodo ne 5 mg-acetam inophen 325 mg tablet TAKE 1 TABLET BY MOUTH EVERY 6 HOURS 10/14 completed Not Available Not Available Not Available ondansetr on HCl 8 mg tablet TK 1 T PO Q 8 H PRN active Not Available Not Available No t Available meloxicam 15 mg tablet TAKE 1 TABLET BY MOUTH EVERY DAY NEEDED 08/16 completed Not Available Not Available Not Available prednison e 20 mg tablet 08/07 completed Not Available Not Available Not Available tramadol 50 mg tablet Take 1 tablet every 6 hours by oral route as needed. 10/09 completed Not Available Not Available Not Available triamcino lone acetonide 0.1 % topical cream MARÍA THIN LAYER EXT AA BID 08/31 completed Not Available Not Available Not Available oxycodone -acetamin ophen 5 mg-325 mg tablet TAKE 1 TABLET BY MOUTH EVERY 4 HOURS PRN FOR SEVERE PAIN 08/17 completed Not Available Not Available Not Available Deep Sea Nasal 0.65 % spray aerosol USE 2 SPRAYS IN EACH NOSTRIL EVERY 4 HOURS NEEDED. active Not Available Not Available No t Available famotidin e 20 mg tablet Take 1 tablet twice a day by oral route as needed. 08/31 completed Not Available Not Available Not Available Xylocaine 10 mg/mL (1 %) injection solution 2 ml right knee x 1 12/06 completed Not Available Not Available Not Available Kenalog 10 mg/mL suspensio n for injection Take 20 mg by injectio n route. 10/09 completed ND: [id number] 4-20 Not Available Not Available Not Available triamcino lone acetonide 40 mg/mL suspensio n for injection 1 ml right knee x 1 12/06 completed Not Available Not Available Not Available hydrocodo ne 7.5 mg-acetam inophen 325 mg tablet TAKE 1 TABLET BY MOUTH EVERY 4 HOURS NEEDED FOR PAIN 10/14 completed Not Available Not Available Not Available pantopraz ole 40 mg tablet,de layed release Take 1 tablet every day by oral route. active Not Available Not Available No t Available docusate sodium 100 mg capsule Take 1 capsule every day by oral route. 08/31 completed Not Available Not Available Not Available omeprazol e 20 mg capsule,d elayed release TAKE 1 CAPSULE BY MOUTH EVERY DAY 08/16 completed Not Available Not Available Not Available diclofena c sodium 75 mg tablet,de layed release TAKE 1 TABLET BY MOUTH TWICE DAILY 08/16 completed Not Available Not Available Not Available piroxicam 10 mg capsule TK 1 C PO BID WC 09/22 completed Not Available Not Available Not Available ergocalci ferol (vitamin D2) 1,250 mcg (50,000 unit) capsule TAKE 1 CAPSULE BY MOUTH EVERY WEEK active Not Available Not Available No t Available clobetaso l 0.05 % scalp solution APPLY TOPICALL Y TO THE SCALP TWICE DAILY IN THE MORNING AND IN THE EVENING active Not Available Not Available No t Available fluticaso ne propionat e 50 mcg/actua tion nasal spray,konstantin pension SHAKE LIQUID AND USE 2 SPRAYS IN EACH NOSTRIL EVERY DAY 08/16 completed Not Available Not Available Not Available neomycin- polymyxin -hydrocor t 3.5 mg-10,000 unit/mL-1 % ear drops,konstantin p INSTILL 4 DROPS INTO both ears BY OTIC ROUTE 3 TIMES PER DAY x 7 days active Not Available Not Available No t Available Euflexxa 10 mg/mL (mw 2.4-3.6 million) intra-art icular syringe Injectio ns given in the office by the doctor 08/07 completed NDC: [id number] 001 Not Available Not Available Not Available lidocaine (PF) 10 mg/mL (1 %) injection solution In office injectio n administ ered by the provider 01/18 completed NDC: 0409-427 11-16 Not Available Not Available Not Available Xarelto 10 mg tablet TAKE 1 TABLET BY MOUTH EVERY DAY 10/14 completed Not Available Not Available Not Available ropivacai ne (PF) 5 mg/mL (0.5 %) injection solution Take 20 mg by injectio n route. 10/09 completed Not Available Not Available Not Available [place] Complete nasal spray 2 sprays each nostril q4hr as needed 2023 active Not Available Not Available Not Avai lable Imodium A-D 2 mg capsule Take per package instruct ions. Do not exceed recommen ded limit. 12/05 completed Not Available Not Available Not Available Vitals Date Recorded Body height Body mass index (BMI) Body weight Body temperature Heart rate Oxygen saturation Oxygen saturation in Arterial blood by Pulse oximetry Systolic blood pressure Diastolic blood pressure Provider Name and Address Organization Details Last Updated DateTime 4 175.26 cm 28.4 kg/m2 84330.7 4 g 99.2 [degF] 74 /min 97 % 97 % 120 mm[Hg] 76 mm[Hg] Freda Pickett RN [facility] [employer] [facility] 4 14:00:29 Date Recorded Body height Body mass index (BMI) Body weight Body temperature Heart rate Oxygen saturation Oxygen saturation in Arterial blood by Pulse oximetry Systolic blood pressure Diastolic blood pressure Provider Name and Address Organization Details Last Updated DateTime 4 175.26 cm 28.2 kg/m2 00162.1 4 g 98.5 [degF] 81 /min 96 % 96 % 120 mm[Hg] 82 mm[Hg] Kayla Quiles RN [facility] [employer] [facility] 4 17:16:48 Date Recorded Body height Body mass index (BMI) Body weight Body temperature Heart rate Oxygen saturation Oxygen saturation in Arterial blood by Pulse oximetry Systolic blood pressure Diastolic blood pressure Provider Name and Address Organization Details Last Updated DateTime 4 175.26 cm 26.7 kg/m2 52124.2 2 g 97 [degF] 70 /min 97 % 97 % 118 mm[Hg] 72 mm[Hg] Freda Pickett RN [facility] [employer] [facility] 4 09:19:56 Date Recorded Body height Body mass index (BMI) Body weight Body temperature Heart rate Oxygen saturation Oxygen saturation in Arterial blood by Pulse oximetry Pain severity - 0-10 verbal numeric rating [Score] - Reported Systolic blood pressure Diastolic blood pressure Provider Name and Address Organization Details Last Updated DateTime 5 175.26 cm 26.6 kg/m2 80946.6 3 g 98.4 [degF] 71 /min 97 % 97 % 0 118 mm[Hg] 70 mm[Hg] Nikkie Gardner MA [employer] 5 08:59:31 Social History Question Answer Notes LastModified by Organizat ion Details LastModified Time Tobacco Smoking Status Current Every Day Smoker 1 cig a day Nikkie Gardner MA null, [employer] 08/16/2024 09:01:17 What Is Your Level Of Alcohol Consumption? None [email or web address] Information not available 12/05/2022 Do You Wear A Helmet When Biking? Yes [id number] Information not available 07/31/2022 Are You Blind Or Do You Have Difficulty Seeing? No [id number] Information not available 07/31/2022 What Is Your Level Of Caffeine Consumption? Occasional [id number] Information not available 07/31/2022 In The 14 Days Before Symptom Onset, Have You Had Close Contact With A Laboratory-confir med COVID-19 While That Case Was Ill? No [id number] Information not available 07/31/2022 In The 14 Days Before Symptom Onset, Have You Had Close Contact With A Person Who Is Under Investigation For COVID-19 While That Person Was Ill? No [id number] Information not available 07/31/2022 Are You Currently Employed? No Information not available 08/16/2024 Are You Deaf Or Do You Have Serious Difficulty Hearing? No [id number] Information not available 07/31/2022 What Type Of Diet Are You Following? REGULAR [id number] Information not available 07/31/2022 Have There Been Any Changes To Your Family Or Social Situation? No [id number] Information not available 07/31/2022 Do You Use Insect Repellent Routinely? No Information not available 08/16/2024 What Was The Date Of Your Most Recent Tobacco Screening? 08/16/2024 Information not available 08/16/2024 What Is Your Current Pack Years? 30ormorepackye ars [id number] Information not available 07/31/2022 Have You Ever Been Counseled For Unhealthy Alcohol Use? No [id number] Information not available 07/31/2022 Do You Have Any Pets? No [id number] Information not available 07/31/2022 What Is Your Relationship Status? [id number].31336 [id number] Information not available 07/31/2022 Do You Use Your Seat Belt Or Car Seat Routinely? Yes MIGRATION.[id number] [id number] Information not available 07/31/2022 Do You Have Smoke And Carbon Monoxide Detectors In Your Home? Yes Information not available 08/16/2024 Are You Passively Exposed To Smoke? No Information no t available 08/16/2024 Are There Any Smokers In Your House? No Information not available 08/16/2024 Do You Participate In Social Media? No Information not available 08/16/2024 Do You Feel Stressed (tense, Restless, Nervous, Or Anxious, Or Unable To Sleep At Night)? [id number] Information not available 08/16/2024 Do You Use Any Illicit Or Recreational Drugs? No MIGRATION.59146 [id number] Information not available 07/31/2022 Do You Use Sunscreen Routinely? No Information not available 08/16/2024 Has Tobacco Cessation Counseling Been Provided? No MIGRATION.76766 91575 Information not available 07/31/2022 How Many Years Have You Smoked Tobacco? 18 MIGRATION.79445 85667 Information not available 07/31/2022 Have You Recently Traveled Abroad? No Information not available 08/16/2024 Are You Currently In School? No MIGRATION.11773 47567 Information not available 07/31/2022 Do You Have Any Dietary Restrictions? No MIGRATION.63181 64063 Information not available 07/31/2022 Do You Or Have You Ever Used Any Other Forms Of Tobacco Or Nicotine? No MIGRATION.94340 24941 Information not available 07/31/2022 Sex: Unknown Functional Status Question Answer Note LastModified by Organizat ion Details LastModified Time Do you have difficulty walking or climbing stairs? No [id number] 26 Information not available 07/31/2022 Do you have difficulty doing errands alone? No MIGRATION.[id number] 26 Information not available 07/31/2022 Are you able to care for yourself? Yes [id number] 26 Information not available 07/31/2022 Do you have difficulty dressing or bathing? No MIGRATION.[id number] 26 Information not available 07/31/2022 What is your exercise level? Occasional MIGRATION.[id number] 26 Information not available 07/31/2022 Mental Status Question Answer Note LastModified by Organizat ion Details LastModified Time Do you have difficulty concentrating, remembering or making decisions? No [id number].[id number] Information not available 07/31/2022 Family History Relationship Description Onset Age of this Age Resolved Age Notes LastModified by Organization Details LastModified Time Mother Family history of malignant neoplasm [id number] Not available 07/31/2022 18:34:09 Medical History No medical history recorded. Immunizations Vaccine Type Date Status Note Provider Nam e and Address Organization Details Recorded Time Influenza, high-dose, quadrivalent, PF 1 completed Not Available [facility] 01/29/2023 00:44:34 Influenza, high-dose, trivalent, PF 9 completed Not Available [facility] 01/29/2023 00:44:34 Influenza, high-dose, trivalent, PF 8 completed Not Available [facility] 01/29/2023 00:44:34 Influenza, high-dose, trivalent, PF 8 completed Not Available [facility] 01/29/2023 00:44:34 Pneumococcal conjugate PCV 13 8 completed Not Available [facility] 01/29/2023 00:44:34 Influenza, high-dose, trivalent, PF 7 completed Not Available [facility] 01/29/2023 00:44:34 Past Encounters Encounter ID Performer Location Encounter Start Date Encounter Closed Date Diagnosis/Indication Diagnosis SNOMED-CT Code Diagnosis ICD10 Code Diagnosis Note [id number] [facility] Primary Care [facility] [address] [place] [address] 08/15/2020 00:00:00 08/15/2020 10:21:01 [id number] [facility] [address] [place] [address] 08/31/2020 00:00:00 08/31/2020 11:22:39 [id number] [facility] [place] [address] [place] [address] 10/12/2020 00:00:00 10/12/2020 11:29:20 [id number] [facility] [place] [address] [place] [address] 01/18/2021 00:00:00 01/18/2021 09:27:20 [id number] [facility] [place] [address] [place] [address] 05/10/2021 00:00:00 05/31/2021 09:22:52 [id number] [facility] [place] [address] [place] [address] 10/11/2021 00:00:00 10/29/2021 21:51:53 [id number] [facility] [place] [address] [place] [address] 11/20/2021 00:00:00 11/20/2021 11:21:31 [id number] [facility] [place] [address] [place] [address] 12/06/2021 00:00:00 12/07/2021 13:29:21 [id number] [facility] [place] [address] [place] [address] 01/17/2022 00:00:00 01/17/2022 15:35:57 [id number] [facility] [place] [address] [place] [address] 02/11/2022 00:00:00 02/11/2022 10:28:29 [id number] [facility] [place] [address] [place] [address] 02/18/2022 00:00:00 02/18/2022 10:29:56 [id number] [facility] [place] [address] [place] [address] 02/25/2022 00:00:00 02/25/2022 10:22:31 [id number] [facility] [place] [address] [place] [address] 04/08/2022 00:00:00 04/08/2022 10:54:19 [id number] Rose Del Toro MD [facility] Primary Care [facility] [address] [place] [address] 08/07/2022 09:36:55 08/07/2022 10:09:54 Adult health examination 392274018 Z00.00 Flu vaccine each year in [facility] bivalent booster recommende dHas completed pneumonia vaccinesHa s completed shingrix seriesChec k labs and PSARecomme nd smoking cessation Screening for disorder 561988093 Z13.9 Tobacco user 686923840 Z 72.0 Pain of ri ght knee joint 1414826168 97314 M25.561 Vitamin D deficiency 347 59107 E55.9 Screening for malignant neoplasm of prostate 494923236 Z12.5 Hyperlipidemia 67373343 E78.5 R94.5 Z79.899 Diabetes m ellitus screening 031833116 Z13.1 [id number] SHOBHA Albarado [facility] [place] [address] [place] [address] 09/02/2022 09:16:02 09/02/2022 09:56:54 Pain of right knee joint 0870340760 79439 M25.561 Osteoarthr itis of right knee joint 0677290371 45129 M17.11 [id number] Rose Del Toro MD [facility] Primary Care [facility] [address] [facility] [address] 10/09/2022 09:20:44 10/09/2022 09:39:50 Pain of right knee joint 2068669959 53913 M25.561 will be having right knee replacemen tuse pain meds sparingly prn severe pain in meantimeca n cause constipati on, confusion, poor balancef/u with ortho as scheduled [id number] Bryan Castelan MD [facility] [place] [address] [place] [address] 12/05/2022 11:33:15 12/05/2022 13:10:09 Osteoarthritis of right knee joint 8986813859 63746 M17.11 Pain of ri ght knee joint 0782162923 14778 M25.852 [id number] Bryan Castelan MD [facility] [place] [address] [place] [address] 02/18/2023 13:56:36 02/18/2023 14:33:38 Osteoarthritis of right knee joint 9209111967 72774 M17.11 Pain of ri ght knee joint 7042792659 36987 M25.561 Postoperative visit 1836 68899 Z09 History of right total knee replacement 2896987782 839554 Z96.357 [id number] SHOBHA Albarado [facility] [place] [address] [place] [address] 03/18/2023 14:02:14 03/18/2023 14:37:01 Osteoarthritis of right knee joint 3405023965 34804 M17.11 Pain of ri ght knee joint 6640595501 60307 M25.561 Postoperative visit 1836 05700 Z09 History of right total knee replacement 3960334893 164502 Z96.666 [id number] KALEE Falk [facility] Primary Care [facility] [address] [place] [address] 07/25/2023 13:53:43 07/25/2023 14:33:37 Gastroesophageal reflux disease 159787025 K21.9 -chronic, uncontroll ed for the last 4 or 5 months-has not used anything over the counter-tr ial omeprazole Screening for disorder 211822400 Z13.9 -Pt is concerned for his prostate-d enies family hx of prostate issues-lab s obtained Eczema of scalp 57816075 13 2100 L30.9 -pt has noted redness/fl aking to the scalp for more than 1 year-gael tse notes he takes a shower every other day-trial clobetasol scalp solution-t rial ketoconazo le 2% shampoo Rhinitis 62819531 J00 -pt noting daily dry nasal passage-tr ial ocean complete nasal spray [id number] Rose Del Toro MD [facility] Primary Care [address] [facility] [address] 10/15/2023 17:05:37 10/15/2023 17:37:16 Vitamin D deficiency 34696944 E55.9 Screening for malignant neoplasm of prostate 555916109 Z12.5 Hyperlipidemia 45730308 E78.5 R94.5 Z79.899 Pigmented skin lesion 20 1439902 L81.9 ?melanomad erm referraldi scussed with patient and grandson the importance of making and keeping this appt Gastroesop hageal reflux disease without esophagitis 630659680 K21.9 Much improved [id number] KALEE Falk [facility] Primary Care [address] [place] [address] 10/22/2023 09:59:27 10/22/2023 10:21:35 [id number] KALEE Falk [facility] Primary Care [address] [place] [address] 02/26/2024 09:12:37 02/26/2024 09:34:00 Pigmented skin lesion 652985881 L81.9 ?melanomad erm referral updated [id number] KALEE Méndez [facility] Primary Care [address] [facility] [address] 08/16/2024 08:47:30 08/16/2024 09:31:05 Adult health examination 105205205 Z00.00 Screening for disorder 528152117 Z13.9 Vitamin D deficiency 347 07082 E55.9 Gastroesop hageal reflux disease 531630478 K21.9 Hyperlipidemia 41213731 E78.5 R94.5 Z79.899 Screening for malignant neoplasm of prostate 519280518 Z12.5 Health Concerns Section Related Observation LastModified by Organization Detai ls LastModified Time None Recorded Concern Status LastModified by Organization Details LastModified Time None Recorded Advance Directives Directive None Recorded Payers Encounter Date Sequence Insurance Name Policy Number Policy Matthews Covered Member ID Matthews Member ID Guarantor Name 07/25/2023 1 [employer] [facility] [place] [employer] (MEDICARE - MEDICAID REPLACEMENT HMO) [id number] Gary Bowman [id number] Gary Bowman 10/15/2023 1 [employer] [place] [employer] (MEDICARE - MEDICAID REPLACEMENT HMO) [id number] Gary Bowman [id number] Gary Bowman 10/22/2023 1 [employer] [facility] [place] (MEDICARE - MEDICAID REPLACEMENT HMO) [id number] Gary Bowman [id number] Gary Bowman 02/26/2024 1 [employer] [facility] [place] [employer] (MEDICARE - MEDICAID REPLACEMENT HMO) [id number] Gary Bowman [id number] Gary Bowman 08/16/2024 1 [employer] [facility] [place] [employer] (MEDICARE - MEDICAID REPLACEMENT HMO) [id number] Gary Bowman [id number] Gary Bowman Notes Date Note Type Note Provider Name and Address Organization Details Recorded Time 07/25/2023 text/html Pt is here for multiple issues KALEE Falk [address] [place], [place], [address], [facility] 07/25/2023 14:18:36 10/15/2023 text/html lesion right abd x many years, has been growing for 3 years, has bled 3x over the years. No pain. Rose Del Toro MD [address], [place], [place], [address], [facility] 10/19/2023 10:03:41 02/26/2024 text/html pt is here for f/u KALEE Kenyon [address], [place], [place], [address], [facility] 02/26/2024 09:33:01 08/16/2024 text/html Patient is an 79 year old male that presents to the office for Medicare Wellness. Patient is accompanied by family member that is translating for patient as he is Ghanaian speaking only. Patient continues to see Orthopedics annually for right knee injections. Patient denies concerns with right knee at this time. Patient reports intermittent left sided headache and skull pain for 2-3 months. Patient denies anything making the pain better or worse. Pain is only present at night. Patient denies chest pain and shortness of breath.Patient is not currently taking any daily medications. labs-ordered (Flip)PSA-orde red (Flip)Colonosc opy- declinesFlu- declinesCovid- UTDTdap- UTDShingles- UTDPneumo- UTD Sridevi Brown, COMMUTATOR V RING ASSEMBLER-C [address] [facility] [facility] [address], [place], [address], [place] - [employer] 08/16/2024 09:54:35
--- OUTSIDE RECORDS SUMMARY | 2024-08-30 08:58 | XMS_ITS | Referral Summary ---
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 Immunizations Immunization Administration Dates Next Due Influenza, Trivalent, High D ose, Split, Preservative Free, Intramuscular 05/10/2019,02/17/2018,07/16/2017,08/07 Pneumococcal Conjugate PCV 13 07/16/2017 Social History Tobacco Use Types Packs/Day Years [...] on file 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 Gender Identity Not on file Sexual Orientation Not on file 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
[2024-08-30 09:18] LABS: Basophils Absolute Auto 0.1 K/mm3 (0.0-0.1); Basophils Percent Auto 0.8 % (0.2-1.2); Eosinophils Absolute Auto 0.3 K/mm3 (0-0.3); Eosinophils Percent Auto 4.9 % (0-4.4); Hematocrit 46.8 % (42.0-52.0); Hemoglobin 16.4 g/dL (14.0-18.0); Immature Granulocyte Absolute 0.02 K/mm3 (0.00-0.031); Immature Granulocyte Percent A 0.3 % (0-0.5); Lymphocytes Absolute Auto 1.52 K/mm3 (0.9-3.2); Lymphocytes Percent Auto 23.3 % (18.3-44.2); Mean Corpuscular Volume 91.2 fl (80-100); Monocytes Absolute Auto 0.4 K/mm3 (0.1-0.6); Monocytes Percent Auto 6.1 % (2.6-8.5); Neutrophils Absolute Auto 4.2 K/mm3 (1.3-6.7); Neutrophils Percent Auto 64.6 % (45.5-73.1); Platelet Count Result 197 k/mm3 (150-375); Red Blood Count 5.13 M/mm3 (4.6-6.20); Red Cell Distribution Width 13.6 % (11.5-14.5); White Blood Count 6.5 K/mm3 (4.5-10.0)
[2024-08-30 09:34] LABS: Alanine Aminotransferase 14 U/L (6-50); Albumin Level 4.3 g/dL (3.5-5.1); Alkaline Phosphatase 65 U/L (38-126); Anion Gap 8 mmol/L (4-12); Aspartate Amino Transferase 22 U/L (17-59); Bilirubin,Total 1.8 mg/dL (0.2-1.3); Blood Urea Nitrogen 10 mg/dL (9-20); Calcium 9.3 mg/dL (8.4-10.2); Carbon Dioxide 24 mmol/L (22-30); Chloride 108 mmol/L (98-107); Cholesterol 210 mg/dL (0-200); Estimated Glomerular Filt Rate > 60; Glucose 95 mg/dL (65-110); HDL Direct 57 mg/dL; Potassium 4.4 mmol/L (3.4-5.0); Sodium 140 mmol/L (137-145); Triglycerides 102 mg/dL (<150)
[2024-08-30 09:47] LABS: LDL Cholesterol Direct 116 mg/dL
[2024-08-30 10:04] LABS: Prostate Specific Antigen 1.1 ng/mL (< OR = 4.0)
== END 2024-08-30 08:31 | disposition home or self-care (01) ==
PROVIDERS: PCP Family Medicine; Visit Provider Internal Medicine
DX: Z00.00 Encounter for general adult medical examination without abnormal findings (principal); E78.5 Hyperlipidemia, unspecified; Z12.5 Encounter for screening for malignant neoplasm of prostate; Z79.899 Other long term (current) drug therapy
CPT/HCPCS: 36415; 80053; 80061; 82306; 83036; 84153; 85025; G0103

== ENCOUNTER 2025-05-09 09:39 | Emergency (ER) | payer OTHER, SELFPAY ==
[2025-05-09 10:15] VITALS: BP 141/83; PULSE 78; RESP 20; TEMP 36.6; O2SAT 96
[2025-05-09 11:38] LABS: Add Urine Microscopic? YES; Appearance Urine Clear (Clear); Glucose Urine UA Negative (Negative); Leukocyte Esterase Ur Negative LEU/UL (Negative); Need Manual Microscopic Reviewed; Nitrate Urine Negative (Negative); Specific Grav Ur 1.026 (1.001-1.035)
--- NOTE | 2025-05-09 11:39 | PC.NURSE ---
Dr. Hannah at bedside talking with pt.
[2025-05-09] MEDS: LIDOCAINE 2% GEL UROJET 10 ML PKG (12:17)
--- NOTE | 2025-05-09 12:36 | ED.MALEGU ---
HPI - Male Genitourinary General Chief complaint: Urogenital-Male Stated complaint: PAINFUL,DIFFICULT URINATION Time Seen by Provider: 05/09/25 11:15 Source: patient and RN notes reviewed Mode of arrival: ambulatory Limitations: language barrier (video spanish medical interpreter and family translated) History of Present Illness HPI Narrative: This an 80 year old male who presents with family for evaluation of difficulty urinating. He states starting 2 days ago he starting dribbling when he would try to urinate and today he is unable urinating. He is complaining about lower abdominal pressure. He denies fever, chills, nausea, vomiting, hematuria or back pain. Nursing has sent off urine sample. Bladder scan shows 800 ml urine. Related Data Allergies Allergy/AdvReac Type Severity Reaction Status Date / Time No Known Allergies Allergy Unknown Verified 05/09/25 09:40 [facility] Past Medical History Medical History (Updated 05/09/25 @ 12:46 by Adrienne Hannah MD) Patient denies medical problems Surgical History Surgical History History of knee surgery 03/28/23- right knee manipulation History of right knee joint replacement 02/05/23- Dr Castelan Social History Social History Years smoked: 50 Smoking status: Current some day smoker Alcohol intake: never Substance use type: does not use Lack of Transportation: No Lack of Food: Never True Current Housing: I Have Housing Concerned About Future Housing: No Difficulty Paying Gas/Electric Bills: No Difficulty Paying for Meds: No Currently Unemployed: No Education: Grade School Difficulty w/ Childcare or Family Care: No Living arrangements: with family Occupation/Education: retired Spiritual care concerns: No Exam Const: General: alert Nutritional Appearance: well nourished Limitations: no limitations Other: standing and restless due to pain HENMT: Mouth: Yes Normal oral and palatal mucosa present and Yes lip normal Eyes: EOM: EOMs intact bilaterally Resp: Effort & Inspection: normal respiratory effort Auscultation: clear to auscultation bilaterally Cardio: Rate: regular rate Rhythm: regular rhythm Heart sounds: no murmurs GI: Inspection: distended GI Palp: Yes Soft to palpation, Yes Tenderness to palpation present (GI) (suprapubic), No Guarding due to palpation present (GI) and No Rigid due to palpation Auscultation: normal bowel sounds : General: Yes no CVA tenderness Skin: General skin exam: normal color Rashes: no rashes Neuro: General: patient oriented x3 and moves all extremities Cranial nerves: Yes CN's II-XII intact bilaterally Extrem: General: normal to inspection Psych: Mental Status: mental status grossly normal Affect: normal affect Attitude: cooperative Course Reevaluation(s) Reevaluation #1: PAtient has been educated and shannon catheter placed. I discussed with him and family he will be discharged with catheter and they will need to follow up with urology Date: 05/09/25 Time: 12:44 Vital Signs Vital signs: Vital Signs Temperature 97.8 F 05/09/25 10:15 Pulse Rate 78 05/09/25 10:15 Respiratory Rate 20 05/09/25 10:15 Blood Pressure 141/83 H 05/09/25 10:15 Pulse Oximetry 96 05/09/25 10:15 Oxygen Delivery Room Air 05/09/25 10:15 Temperature 98 F 05/09/25 13:06 Pulse Rate 86 05/09/25 13:06 Respiratory Rate 16 05/09/25 13:06 Blood Pressure 134/86 05/09/25 13:06 Pulse Oximetry 98 05/09/25 13:06 Oxygen Delivery Room Air 05/09/25 10:15 MDM Differential Diagnosis Differential Diagnosis: BPH, hematuria, bladder mass, UTI Lab Data [facility] Lab Attestation statement: I personally reviewed the patient's lab results. Labs: Lab Results 05/09/25 Range/Units 11:20 Urine Color Dark yellow (Yellow) Urine Appearance Clear (Clear) Urine pH 5.5 (5.0-9.0) Ur Specific [place] 1.026 (1.001-1.035) Urine Protein Trace (Negative) mg/dL Urine Glucose (UA) Negative (Negative) mg/dL Urine Ketones 1+ H (Negative) mg/dL Ur Blood (Man) 2+ H (Negative) Urine Nitrate Negative (Negative) Urine Bilirubin Negative (Negative) Urine Urobilinogen 1.0 (<2.0) mg/dL Add Ur Microanalysis Reviewed Leukocyte Esterase Rfl Negative (Negative) RACHELE/UL Urine RBC 0-2 (0-2) /hpf Urine WBC 0-5 (0-3) /hpf Ur Squamous Epith Cells None seen (Few) /hpf Urine Bacteria None seen /hpf Urine Casts 3-5 Discharge Plan Discharge Clinical Impression: Acute retention of urine Patient Disposition: Home Condition: Stable Instructions: Urinary Retention in Men (ED), Shannon Catheter Placement and Care (ED) Additional Instructions: Please call urologist to make an appointment within 1 week to have assessment of when catheter can be removed. Patient Language: Burundian Prescriptions: New tamsulosin 0.4 mg capsule 0.4 mg PO DAILY Qty: 30 0RF Follow-up/Referrals: [place] Jolly MD [Physician, Urology] Katey,Coby Rodriguez MD [Primary Care Provider]
[2025-05-09 13:06] VITALS: BP 134/86; PULSE 86; RESP 16; TEMP 36.6; O2SAT 98
== END 2025-05-09 13:14 | disposition home or self-care (01) ==
PROVIDERS: Emergency Provider General Practice; PCP Family Medicine
DX: R30.0 Dysuria (principal); F17.210 Nicotine dependence, cigarettes, uncomplicated
CPT/HCPCS: 51702; 81001; 99283

== ENCOUNTER 2025-05-10 20:27 | Emergency (ER) | payer OTHER, SELFPAY ==
[2025-05-10 20:37] VITALS: BP 139/81; PULSE 74; RESP 18; TEMP 37; O2SAT 99
--- NOTE | 2025-05-10 20:46 | PC.NURSE ---
Pt shannon catheter repositioned, and now draining. Pt state pain improved to 5/10.
--- NOTE | 2025-05-10 22:36 | PC.NURSE ---
Pt states symptoms have resolved after catheter adjustment, and is ready to go home. Pt educated on proper catheter care, provided with drainage bag, and new stat lock applied. Pt ambulatory out of ED with even and steady gait.
--- OUTSIDE RECORDS SUMMARY | 2025-05-10 23:05 | XMS_ITS | Clinical Summary ---
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 Not on file Not [...] 3:06 PM CDT Height 163.8 cm (5' 4.5) 12/28/2019 3:06 PM CDT Body Mass Index 31.43 12/28/2019 3:06 PM CDT Plan of Treatment Health Maintenance Due Date Last Done Comments Depression Screening 1945 Fall Risk Assessment 1945 DTaP/Tdap/Td Vaccine (1 - Tdap) 02/07/1955 Hepatitis B Screening 02/07/1962 Zoster Vaccine (1 of 2) 02/07/1994 Abdominal Aortic Aneurysm (A AA) Screen 02/07/2009 Well Visit 65+ 02/07/2009 Pneumococcal vaccine 65+ (2 of 2 - PPSV23, PCV20, or PCV21) 09/10/2017 07/16/2017 Influenza Vaccine (#1) 2025 9, 02/17/2018, 07/16/2017, Additional history exists Insurance [facility] Care Teams Web Content Coordinator Relationship Specialty Start Date End Date Coby Del Toro MD [address] [place] [address] [place] [id number] PCP - General Family Medicine 12/14/19
== END 2025-05-10 22:36 | disposition left against medical advice (07) ==
PROVIDERS: Emergency Provider Emergency Medicine; PCP Family Medicine
DX: R10.30 Lower abdominal pain, unspecified (principal)
CPT/HCPCS: 99199